=== PATIENT | female | born 1980 | race Caucasian/White ===

== ENCOUNTER 2020-11-17 06:23 | Inpatient (IN) | payer OTHER ==
[~2020-11-17] VITALS: Ht 162.6 cm; Wt 99.8 kg
[2020-11-17] MEDS ORDERED: ROPIVACAINE 0.2% 100ML VIAL 100 ML EP SCH (06:30)
[2020-11-17] MEDS ORDERED: EPHEDRINE SULFATE 50 MG/ML AMPULE IVP PRN (06:30)
[2020-11-17] MEDS ORDERED: OXYTOCIN-LR 20 UNITS/1000 ML 1,000 ML IV SCH ×3 (06:30→12:15)
[2020-11-17] MEDS ORDERED: PROMETHAZINE HCL 25 MG/ML 1ML AMPULE IM PRN (06:30)
[2020-11-17] MEDS ORDERED: NALOXONE HCL 0.4 MG/1 ML ML IV PRN (06:30)
[2020-11-17] MEDS ORDERED: LACTATED RINGERS 500 ML 500 ML IV PRN (06:30)
[2020-11-17] MEDS ORDERED: LACTATED RINGERS 1000ML 1,000 ML IV PRN (06:30)
[2020-11-17] MEDS ORDERED: MEPERIDINE-PF 50 MG/ML SYG IVP PRN (06:30)
[2020-11-17 07:30] VITALS: BP 125/79
[2020-11-17 07:34] LABS: HEMATOCRIT 30.7 % (36-48); MEAN CORPUSCULAR HEMOGLOBIN 29.9 pg (27.0-33.0); MEAN CORPUSCULAR HGB CONC 32.6 g/dL (32.0-36.0); MEAN CORPUSCULAR VOLUME 91.6 fL (79-99); RED BLOOD CELL COUNT(AUTO) 3.35 MIL/uL (4.00-5.50); RED CELL DISTRIBUTION WIDTH 14.6 % (11.0-15.5); WHITE BLOOD COUNT (AUTO) 9.3 K/uL (4.8-10.8)
[2020-11-17 07:53] LABS: BILIRUBIN,URINE NEGATIVE (NEGATIVE); COLOR,URINE YELLOW (YELLOW); GLUCOSE, URINE (UA) NEGATIVE (NEGATIVE); KETONES,URINE NEGATIVE (NEGATIVE); LEUKOCYTE ESTERASE ,URINE MODERATE (NEGATIVE); NITRATE,URINE NEGATIVE (NEGATIVE); OCCULT BLOOD,URINE SMALL (NEGATIVE); PROTEIN,URINE TRACE mg/dL (NEGATIVE); UROBILINOGEN,URINE 0.2 mg/dL (0.2-1.0)
[2020-11-17 08:01] LABS: APPEARANCE,URINE CLOUDY (CLEAR)
[2020-11-17 08:07] LABS: BACTERIA,URINE Moderate /HPF (None Seen); SQUAMOUS EPITHELIAL CELL,UR 50-100 /HPF (0-2)
[2020-11-17] MEDS ORDERED: FENTANYL CITRATE PF 50 MCG/1 ML 2ML VIAL ONE (08:50)
[2020-11-17 09:16] LABS: AMPHET/METH SCREEN,URINE NEGATIVE (NEGATIVE); BARBITURATE SCREEN, URINE NEGATIVE (NEGATIVE); BENZODIAZEPINES SCREEN,URINE NEGATIVE (NEGATIVE); CANNABINOID SCREEN,URINE POSITIVE (NEGATIVE); COCAINE SCREEN,URINE NEGATIVE (NEGATIVE); OPIATE SCREEN,URINE NEGATIVE (NEGATIVE); PHENCYCLIDINE SCREEN,URINE NEGATIVE (NEGATIVE)
[2020-11-17] MEDS ORDERED: METHYLERGONOVINE MALEATE 0.2 MG/1 ML ML ONE (10:34)
[2020-11-17] MEDS ORDERED: MISOPROSTOL 200 MCG TABLET ONE (10:34)
[2020-11-17] MEDS ORDERED: ACETAMINOPHEN 325 MG TAB PO PRN (12:15)
[2020-11-17] MEDS ORDERED: DIPH,PERTUSS(ACELL),TET VAC/PF 0.5 ML VIAL IM PRN (12:15)
[2020-11-17] MEDS ORDERED: MEASLES/MUMPS/RUBELLA VACCINE, LIVE 0.5 ML/VIAL SQ PRN (12:15)
[2020-11-17] MEDS ORDERED: ACETAMINOPHEN WITH CODEINE 1 TAB TAB PO PRN (12:15)
[2020-11-17] MEDS ORDERED: LANOLIN 30GM OINTMENT TP PRN (12:15)
[2020-11-17] MEDS ORDERED: WITCH HAZEL 1 PAD TP PRN (12:15)
[2020-11-17] MEDS ORDERED: BENZOCAINE/LANOLIN/ALOE VERA 60 ML AEROSOL TP PRN (12:15)
[2020-11-17] MEDS ORDERED: IBUPROFEN 600 MG TABLET ONE (12:40)
[2020-11-17 14:42] VITALS: BP 130/76
[2020-11-17] MEDS ORDERED: LORA2ORA5 PO (15:35)
[2020-11-17] MEDS ORDERED: QUET25TA PO (15:35)
[2020-11-17 19:30] VITALS: BP 115/75
[2020-11-17] MEDS: DOCUSATE SODIUM 100 MG CAP PO SCH (20:44)
[2020-11-17 23:47] VITALS: BP 107/62
[2020-11-18 02:52] VITALS: BP 95/53
[2020-11-18 07:17] VITALS: BP 109/65
[2020-11-18 08:14] LABS: HEPATITIS Bs ANTIGEN SCREEN P Negative (Negative)
[2020-11-18] MEDS: DOCUSATE SODIUM 100 MG CAP PO SCH ×2 (08:58→20:53)
[2020-11-18] MEDS: IBUPROFEN 600 MG TABLET PO PRN ×3 (09:00→20:54)
[2020-11-18 11:17] VITALS: BP 126/73
[2020-11-18 16:07] VITALS: BP 118/74
[2020-11-18 19:30] VITALS: BP 120/69
[2020-11-18 23:03] VITALS: BP 126/81
[2020-11-19 03:03] VITALS: BP 108/57
[2020-11-19 07:14] VITALS: BP 115/58
[2020-11-19] MEDS: DOCUSATE SODIUM 100 MG CAP PO SCH (08:23)
[2020-11-19] MEDS: IBUPROFEN 600 MG TABLET PO PRN (08:24)
[2020-11-19 11:49] VITALS: BP 113/72
== END 2020-11-19 13:45 | disposition home or self-care (01) | DRG 806 ==
LOC: LDH 06:23 → WSH 14:30 → PREOBSVTOIN 11-18 06:16
PROVIDERS: ADMIT Specialist; ATTEND Specialist
PROC: 10E0XZZ Delivery of Products of Conception, External Approach (ICD-10-PCS; principal; 2020-11-17)
PROC: 3E033VJ Introduction of Other Hormone into Peripheral Vein, Percutaneous Approach (ICD-10-PCS; 2020-11-17)
PROC: 3E0234Z Introduction of Serum, Toxoid and Vaccine into Muscle, Percutaneous Approach (ICD-10-PCS; 2020-11-17)
PROC: 3E0134Z Introduction of Serum, Toxoid and Vaccine into Subcutaneous Tissue, Percutaneous Approach (ICD-10-PCS; 2020-11-17)
PROC: 3E0R3BZ Introduction of Anesthetic Agent into Spinal Canal, Percutaneous Approach (ICD-10-PCS; 2020-11-17)
PROC: 00HU33Z Insertion of Infusion Device into Spinal Canal, Percutaneous Approach (ICD-10-PCS; 2020-11-17)
DX: O66.0 Obstructed labor due to shoulder dystocia (principal); O99.324 Drug use complicating childbirth; Z37.0 Single live birth; O77.0 Labor and delivery complicated by meconium in amniotic fluid; F12.90 Cannabis use, unspecified, uncomplicated; O99.344 Other mental disorders complicating childbirth; F41.9 Anxiety disorder, unspecified; F32.9 Major depressive disorder, single episode, unspecified; Z3A.39 39 weeks gestation of pregnancy; Z23 Encounter for immunization
CPT/HCPCS: 36415; 80305; 81001; 85027; 86592; 86850; 86900; 86901; 87077; 87088; 87186; 87340; 90715; A4314; G0378; J2210; J2590; J2795; J3010; J7120